=== PATIENT | male | born 1990 | race Asian ===

== ENCOUNTER 2018-01-26 08:22 | Day surgery (SDC) | payer OTHER ==
[~2018-01-26 08:22] MED LIST: BUPIVACAINE 0.25% (MPF) 30 ML INJ; CEFAZOLIN 1 GM INJ; CEFAZOLIN 2 GM/50 ML (PMX) 50 ML IVPB; ROCURONIUM 50 MG INJ; SOD CHLORIDE 0.9% 1,000 ML IV
[2018-01-26] MEDS ORDERED: ONDANSETRON 4 MG INJ (10:08)
[2018-01-26] MEDS ORDERED: GLYCOPYRROLATE 1 MG INJ ×2 (10:08→10:51)
[2018-01-26] MEDS ORDERED: MIDAZOLAM 1 MG/ML 2 ML INJ (10:08)
[2018-01-26] MEDS ORDERED: PROPOFOL 20 ML (10:08)
[2018-01-26] MEDS ORDERED: ROPIVACAINE 0.5 % 30 ML VIAL (10:09)
[2018-01-26] MEDS ORDERED: METOCLOPRAMIDE 10 MG INJ (10:10)
[2018-01-26] MEDS ORDERED: DEXAMETHASONE 4 MG/ML 1 ML INJ (10:42)
[2018-01-26] MEDS ORDERED: NEOSTIGMINE 3 MG/3 ML SYRINGE (10:51)
[2018-01-26] MEDS ORDERED: KETOROLAC 30 MG INJ (10:51)
[2018-01-26] MEDS ORDERED: HYDROmorphONE 1 MG/5 ML IV SYRINGE IV ×2 (11:00)
[2018-01-26] MEDS ORDERED: OXYCODONE/ACETAMINOPHEN (5/325) TAB PO (11:00)
[2018-01-26] MEDS ORDERED: SCOPOLAMINE 1.5 MG PATCH TRANSDERM (11:00)
[2018-01-26] MEDS ORDERED: ONDANSETRON 4 MG INJ IV (11:00)
[2018-01-26] MEDS ORDERED: HYDROCODONE/APAP (5/325) TAB PO (11:00)
[2018-01-26] MEDS: POLYMYXIN/BACITRACIN 1L IRRIG (11:18)
[2018-01-26] MEDS ORDERED: ACETAMINOPHEN 1000MG/100ML IV 100 ML (11:34)
[2018-01-26] MEDS: HYDROmorphONE 1 MG/5 ML IV SYRINGE IV (11:51)
== END 2018-01-26 13:00 | disposition home or self-care (01) ==
LOC: SDS 08:22
DX: K40.31 Unilateral inguinal hernia, with obstruction, without gangrene, recurrent (principal)
CPT/HCPCS: 49521